=== PATIENT | male | born 1975 | race African-American/Black ===

== ENCOUNTER 2017-09-04 16:15 | Inpatient (IN) | payer SELFPAY ==
[~2017-09-04] VITALS: Ht 180.3 cm; Wt 98.9 kg
[2017-09-04 19:22] LABS: BASOPHIL % 0.2 % (0-2); PLATELET COUNT 209 x10^3mcL (130-400)
[2017-09-04 19:24] LABS: RED CELL DISTRIBUTION WIDTH 16.7 % (11.5-14.5)
[2017-09-04 19:27] LABS: CALCIUM 9.3 mg/dL (8.5-10.1); CARBON DIOXIDE 26.4 mmol/L (21-32); CHLORIDE SERUM 104 mmol/L (98-107); CREATININE SERUM 1.1 mg/dL (0.7-1.3); GFR1 > 60 mL/min; GLUCOSE SERUM 110 mg/dL (74-106); POTASSIUM SERUM 4.2 mmol/L (3.5-5.1); SODIUM SERUM 141 mmol/L (136-145)
[2017-09-04 19:32] LABS: ALBUMIN 3.9 g/dL (3.4-5.0); ALKALINE PHOSPHATASE 83 U/L (46-116); ALT/SGPT 22 U/L (16-63); AST/SGOT 26 U/L (15-37); BILIRUBIN TOTAL 0.35 mg/dL (0.20-1.00); LIPASE 113 IU/L (73-393); TOTAL PROTEIN, SERUM 7.8 g/dL (6.4-8.2)
[2017-09-04 23:00] VITALS: BP 116/63
[2017-09-04 23:02] LABS: MAGNESIUM 1.6 mg/dL (1.8-2.4); PHOSPHOROUS 4.1 mg/dL (2.5-4.9)
[2017-09-04 23:03] LABS: CHOLESTEROL/HDL RATIO 5.5
[2017-09-04 23:13] VITALS: BP 116/63
[2017-09-05 00:58] LABS: T3 TOTAL 0.77 ng/mL
[2017-09-05 01:00] LABS: FREE T4 0.81 ng/dL (0.76-1.46); FREE THYROXINE INDEX 1.6 ug/dL (1.4-4.5); T4(THYROXINE) 5.4 ug/dL (4.7-13.3)
[2017-09-05 02:41] LABS: TOTAL IRON BINDING CAPACITY 303 ug/dL (250-450)
[2017-09-05 02:44] LABS: IRON 20 ug/dL (65-170)
[2017-09-05 03:32] LABS: RED BLOOD CELLS 4.73 M/mm3 (4.52-5.90)
[2017-09-05 04:06] LABS: microscopic required? NO
[2017-09-05 04:15] LABS: urine erythrocyte NEGATIVE (NEGATIVE)
[2017-09-05 04:29] LABS: AMPHETAMINE QUAL UR NONE DETECTED (See below)
[2017-09-05 05:31] VITALS: BP 100/51
[2017-09-05 07:12] LABS: BASOPHIL % 0.3 % (0-2); PLATELET COUNT 187 x10^3mcL (130-400)
[2017-09-05 07:13] LABS: RED CELL DISTRIBUTION WIDTH 16.9 % (11.5-14.5)
[2017-09-05 07:48] LABS: CALCIUM 8.7 mg/dL (8.5-10.1); CARBON DIOXIDE 27.9 mmol/L (21-32); CHLORIDE SERUM 104 mmol/L (98-107); CREATININE SERUM 1.1 mg/dL (0.7-1.3); GFR1 > 60 mL/min; GLUCOSE SERUM 97 mg/dL (74-106); MAGNESIUM 2.4 mg/dL (1.8-2.4); PHOSPHOROUS 3.4 mg/dL (2.5-4.9); POTASSIUM SERUM 3.8 mmol/L (3.5-5.1); SODIUM SERUM 142 mmol/L (136-145)
[2017-09-05 12:58] VITALS: BP 120/71
[2017-09-05 16:36] VITALS: BP 126/66
[2017-09-05 20:45] VITALS: BP 132/70
[2017-09-06 05:41] VITALS: BP 109/57
[2017-09-06 06:30] LABS: BASOPHIL % 0.3 % (0-2); PLATELET COUNT 178 x10^3mcL (130-400)
[2017-09-06 06:56] LABS: CALCIUM 8.5 mg/dL (8.5-10.1); CARBON DIOXIDE 28.6 mmol/L (21-32); CHLORIDE SERUM 107 mmol/L (98-107); CREATININE SERUM 1.2 mg/dL (0.7-1.3); GFR1 > 60 mL/min; GLUCOSE SERUM 113 mg/dL (74-106); POTASSIUM SERUM 4.1 mmol/L (3.5-5.1); SODIUM SERUM 142 mmol/L (136-145)
[2017-09-06 08:41] VITALS: BP 110/64
[2017-09-06 12:56] VITALS: BP 122/69
[2017-09-06 16:37] VITALS: BP 109/74
[2017-09-06 20:40] VITALS: BP 125/78
[2017-09-07 05:46] VITALS: BP 125/76
[2017-09-07 08:58] VITALS: BP 128/75
[2017-09-07 12:08] VITALS: BP 122/75
== END 2017-09-07 17:33 | disposition home or self-care (01) | DRG 343 ==
LOC: ED 16:15 → DU 21:50
PROVIDERS: Emergency Medicine; Family Medicine; Surgery
PROC: 0DTJ4ZZ Resection of Appendix, Percutaneous Endoscopic Approach (ICD-10-PCS; principal; 2017-09-05 07:30)
DX: K35.80 Unspecified acute appendicitis (principal); E83.42 Hypomagnesemia; E11.65 Type 2 diabetes mellitus with hyperglycemia; E78.5 Hyperlipidemia, unspecified; Z56.0 Unemployment, unspecified; Z79.4 Long term (current) use of insulin
CPT/HCPCS: 83880; 84439; 94150; J0330; J2250; J2270; J2405; J2543; J2704; J2710; J3010; J3475; J3490; J7030; J7120; Q0092; Q9967